=== PATIENT | female | born 1955 | race Caucasian/White ===

== ENCOUNTER → 2019-04-27 | Outpatient (CLI) | payer OTHER ==
--- NOTE | 2019-04-27 10:31 | PCVCIMAG ---
APPROVED REPORT Study performed: 04/27/2019 09:32:47 EXAM: Comprehensive 2D, Doppler, and color-flow Echocardiogram Patient Location: Echo lab Room #: 2Status: routine BSA: 2.26 HR: 78 bpmBP: 118/72 mmHg Rhythm: NSR with frequent PVCs Other Information Study Quality: Adequate Indications Pacemaker Cardiomyopathy HX; Breast Ca with chemo and radiation Nonischemic cardiomyopathy 2D Dimensions IVSd: 9.34 (7-11mm)LVOT Diam: 21.85 (18-24mm) LVDd: 54.77 mm PWd: 8.29 (7-11mm)Ascending Ao: 35.71 (22-36mm) LVDs: 37.72 (25-40mm) Left Atrium: 43.68 (27-40mm) Aortic Root: 29.08 mm LV Single Plane 4CH: 41.69 % LV Single Plane 2CH: 35.02 % Biplane EF: 38.4 % Volumes Left Atrial Volume (Systole) Single Plane 4CH: 72.78 mLSingle Plane 2CH: 77.45 mL Biplane LA Volume: 75.00 mLLA ESV Index: 33.00 mL/m2 Aortic Valve AoV Peak Saran.: 1.28 m/s AO Peak Gr.: 6.51 mmHgLVOT Max P.03 mmHg LVOT Max V: 0.71 m/s ANNIE Vmax: 2.09 cm2 Mitral Valve E/A Ratio: 1.1 MV Decel. Time: 239.80 ms MV E Max Saran.: 0.65 m/s MV A Saran.: 0.57 m/s IVRT: 77.85 ms TDI E/Lateral E': 5.91E/Medial E': 8.13 Medial E' Saran.: 0.08 m/s Lateral E' Saran.: 0.11 m/s Pulmonary Valve PV Peak Saran.: 0.79 m/sPV Peak Gr.: 2.51 mmHg Pulmonary Vein P Vein S: 0.66 m/sP Vein A: 0.22 m/s P Vein D: 0.47 m/sP Vein A Dur.: 121.1 msec P Vein S/D Ratio: 1.40 Tricuspid Valve TR Peak Saran.: 1.91 m/s TR Peak Gr.: 14.60 mmHg TV Vmax: 0.48 m/sPA Pressure: 22.00 mmHg Left Ventricle The left ventricle is normal size. There is global hypokinesis of the left ventricle. There is normal left ventricular wall thickness. Left ventricular systolic function is moderately decreased. LVEF is 40%. Right Ventricle The right ventricle is normal size. The right ventricular systolic function is normal. Atria The left atrium size is normal. The right atrium size is normal. Aortic Valve Aortic valve is trileaflet. The aortic valve is normal in structure and function. No aortic regurgitation is present. There is no aortic valvular stenosis. Mitral Valve The mitral valve is normal in structure. Mild mitral regurgitation. No evidence of mitral valve stenosis. Tricuspid Valve The tricuspid valve is normal in structure. Mild tricuspid regurgitation with a PA pressure of 22 mmHg. Pulmonic Valve The pulmonary valve is normal in structure. There is no pulmonic valvular regurgitation. Great Vessels The aortic root is normal in size. The ascending aorta is normal in size. Aortic arch is normal in caliber. IVC is normal in size and collapses >50% with inspiration. Pericardium There is no pericardial effusion. There is no pleural effusion. <Conclusion> The left ventricle is normal size. There is normal left ventricular wall thickness. Left ventricular systolic function is moderately decreased. LVEF is 40%. The right ventricle is normal size. The left atrium size is normal. The aortic valve is normal in structure and function. Mild mitral regurgitation. Mild tricuspid regurgitation with a PA pressure of 22 mmHg.
== END | disposition home or self-care (01) ==
LOC: PCVCIMAG 09:10
PROVIDERS: ATTEND Internal Medicine Cardiovascular Disease
DX: I08.1 Rheumatic disorders of both mitral and tricuspid valves (principal); E78.00 Pure hypercholesterolemia, unspecified; I11.0 Hypertensive heart disease with heart failure; I50.9 Heart failure, unspecified; K21.9 Gastro-esophageal reflux disease without esophagitis; E78.5 Hyperlipidemia, unspecified; I49.3 Ventricular premature depolarization; I42.8 Other cardiomyopathies; Z87.891 Personal history of nicotine dependence; Z95.810 Presence of automatic (implantable) cardiac defibrillator; Z79.82 Long term (current) use of aspirin; Z79.899 Other long term (current) drug therapy; Z72.89 Other problems related to lifestyle
CPT/HCPCS: 93306